=== PATIENT | male | born 1970 | race Caucasian/White ===

== ENCOUNTER 2018-12-17 10:30 | Inpatient (IN) | payer MEDICAID ==
[~2018-12-17] VITALS: Ht 167.6 cm; Wt 69.9 kg
[2018-12-17] MEDS ORDERED: LORAZEPAM 1MG TABLET PO ONE ×2 (11:00→12:30)
[2018-12-17 11:51] LABS: CLARITY URINE CLOUDY (CLEAR); COLOR URINE YELLOW (YELLOW); KETONES URINE NEGATIVE (NEGATIVE); LEUKOCYTE ESTERASE URINE TRACE (NEGATIVE); NITRITE URINE NEGATIVE (NEGATIVE); OCCULT BLOOD URINE NEGATIVE (NEGATIVE); PH URINE >=9.0 (4.5-8.0); PROTEIN URINE 1+ (NEGATIVE); SPECIFIC GRAVITY URINE 1.014 (1.005-1.030); UROBILINOGEN URINE 0.2 E.U./dL (0.2-1.0)
[2018-12-17] MEDS ORDERED: IBUPROFEN 600MG TABLET PO ONE (12:30)
[2018-12-17 14:41] LABS: *AMPHETAMINES SCREEN URINE NEGATIVE (NEGATIVE); *BARBITURATES SCREEN URINE NEGATIVE (NEGATIVE); *BENZODIAZEPINES SCREEN URINE NEGATIVE (NEGATIVE); *COCAINE SCREEN URINE NEGATIVE (NEGATIVE); METHADONE URINE SCREEN NEGATIVE (NEGATIVE)
[2018-12-17 14:42] LABS: CANNABINOID URINE SCREEN PRESUMTIVE POSITIVE (NEGATIVE); OPIATES URINE SCREEN NEGATIVE (NEGATIVE); PHENCYCLIDINE URINE SCREEN NEGATIVE (NEGATIVE)
[2018-12-17] MEDS ORDERED: LORAZEPAM 2MG/ML CPJ IV ONE (17:30)
[2018-12-17] MEDS ORDERED: CEFTRIAXONE 1 G PREMIX 50 ML IV ONE (17:45)
[2018-12-17 18:02] LABS: BASOPHILS % 0.9 % (0.0-2.0); EOSINOPHILS % 2.8 % (0.0-5.0); HEMATOCRIT. 43.1 % (42.0-52.0); HEMOGLOBIN. 14.8 g/dL (14.0-18.0); MEAN CORPUSCULAR HEMOGLOBIN 29.7 pg (28.0-32.0); MEAN CORPUSCULAR VOLUME 86.7 fL (80.0-94.0); MEAN PLATELET VOLUME 6.7 fl (7.4-10.4); MONOCYTES % 7.6 % (2.0-8.0); NEUTROPHILS % 64.7 % (40.0-76.0); PLATELET 385 x1000/uL (130-400); RED BLOOD CELL COUNT 4.97 mill/uL (4.7-6.1); RED CELL DISTRIBUTION WIDTH 14.2 % (11.6-14.6)
[2018-12-17 18:10] LABS: CHLORIDE 108 mEq/L (98-107)
[2018-12-17] MEDS ORDERED: ZOLPIDEM TARTRATE 5MG TABLET PO PRN (18:30)
[2018-12-17] MEDS ORDERED: CLONIDINE 0.1MG TABLET PO PRN (18:30)
[2018-12-17] MEDS ORDERED: DOCUSATE SODIUM 100MG CAPSULE PO PRN (18:30)
[2018-12-17] MEDS ORDERED: IPRATROPIUM/ALBUTEROL 0.5-3(2.5)MG/3ML NEB INH PRN (18:30)
[2018-12-17] MEDS ORDERED: KETOROLAC 15MG/ML VIAL IV PRN (18:30)
[2018-12-17] MEDS ORDERED: NITROGLYCERIN 0.4MG TABLET SL SL PRN (18:30)
[2018-12-17] MEDS ORDERED: HALOPERIDOL LACTATE 5MG/ML VIAL IM PRN (18:30)
[2018-12-17] MEDS ORDERED: MAGNESIUM/ALUMINUM HYDROXIDE/SIMETHICONE 30ML UDC PO PRN (18:30)
[2018-12-17] MEDS ORDERED: GUAIFENESIN 200MG/10ML SUGAR FREE UDC PO PRN (18:30)
[2018-12-17 22:00] VITALS: BP 137/98
[2018-12-17] MEDS: FAMOTIDINE 20MG TABLET PO SCH (22:00)
[2018-12-17] MEDS: LORAZEPAM 0.5MG TABLET PO PRN (22:13)
[2018-12-18] VITALS: BP 137/98
[2018-12-18] MEDS: LORAZEPAM 0.5MG TABLET PO PRN (06:55)
[2018-12-18 08:00] VITALS: BP 112/78
[2018-12-18] MEDS: FAMOTIDINE 20MG TABLET PO SCH (08:44)
[2018-12-18] MEDS ORDERED: LORAZEPAM 0.5MG TABLET PO PRN (09:00)
[2018-12-18] MEDS ORDERED: ENOXAPARIN 40MG/0.4ML SYR SUBCUT SCH (09:00)
[2018-12-18 11:23] VITALS: BP 112/78
== END 2018-12-18 12:31 | disposition home or self-care (01) | DRG 463 ==
LOC: ER 10:30 → 6EST 17:37 → EDBEDREQ 17:39 → ENRESERV 20:03
PROVIDERS: ADMIT Internal Medicine; ATTEND Internal Medicine
DX: N39.0 Urinary tract infection, site not specified (principal); E44.1 Mild protein-calorie malnutrition; G82.20 Paraplegia, unspecified; F41.9 Anxiety disorder, unspecified; G89.4 Chronic pain syndrome; F32.9 Major depressive disorder, single episode, unspecified; F20.9 Schizophrenia, unspecified; Z59.0 Homelessness; Z76.5 Malingerer [conscious simulation]; Z68.24 Body mass index [BMI] 24.0-24.9, adult
CPT/HCPCS: 36415; 80305; 81003; 83036; 87077; 96374; 99285; J0696; J1630; J1650; J1885; J2060